=== PATIENT | female | born 1950 | race African-American/Black ===

== ENCOUNTER 2025-02-28 13:32 | Inpatient (IN) | payer MEDICARE, OTHER ==
[~2025-02-28] VITALS: Ht 165.1 cm; Wt 65.0 kg
[2025-02-28] VITALS (10 sets, daily range): BP systolic 146–156; BP diastolic 68–76; PULSE 88–104; RESP 19–28; TEMP 36.7–37; O2SAT 97–100
[2025-02-28] MEDS: IPRATROPIUM BROMIDE (0.02%) 0.5MG/2.5ML NEB HHN STA (12:50)
[~2025-02-28 13:32] MED LIST: ALBU2.5V13 NEB; AMLO-905 MT; ASPI-1160 PO; BENZ100C86 PO; FLUT1BLS3 INH; HYDR25TA78 MT; LIP40 PO; P20 MT
[2025-02-28] MEDS: METHYLPREDNISOLONE SOD SUCC 125MG/2ML (ACT-O-VIAL) IV STA (14:07)
[2025-02-28 14:13] LABS: BASOPHILS % 0.9 % (0.0-2.0); EOSINOPHILS % 11.9 % (0.0-5.0); HEMATOCRIT. 45.4 % (36.0-48.0); HEMOGLOBIN. 14.9 g/dL (12.0-16.0); MEAN CORPUSCULAR HEMOGLOBIN 31.8 pg (28.0-32.0); MEAN CORPUSCULAR HGB CONC 32.7 g/dL (31.0-37.0); MEAN CORPUSCULAR VOLUME 97.1 fL (81.0-99.0); MEAN PLATELET VOLUME 7.8 fl (7.4-10.4); MONOCYTES % 9.4 % (2.0-8.0); NEUTROPHILS % 50.8 % (40.0-76.0); PLATELET 316 x1000/uL (130-400); RED BLOOD CELL COUNT 4.67 mill/uL (4.2-5.4); RED CELL DISTRIBUTION WIDTH 13.5 % (11.6-14.6); WHITE BLOOD COUNT 3.9 x1000/uL (4.5-11.0)
[2025-02-28] MEDS: ALBUTEROL (0.083%) 2.5MG/3ML NEB HHN SCH (14:20)
[2025-02-28 14:23] LABS: CHLORIDE 105 mEq/L (98-107); POTASSIUM 4.8 mEq/L (3.5-5.1); SODIUM 143 mEq/L (136-145)
[2025-02-28 14:24] LABS: CARBON DIOXIDE 30 mEq/L (21-32)
[2025-02-28 14:25] LABS: CALCIUM 9.5 mg/dL (8.7-10.4)
[2025-02-28 14:29] LABS: CREATININE 1.2 mg/dL (0.6-1.0); GLUCOSE 91 mg/dL (70-105)
[2025-02-28 14:30] LABS: UREA NITROGEN BLOOD 14 mg/dL (9-23)
[2025-02-28 14:32] LABS: TROPONIN I HIGH SENSITIVITY 10 ng/L (3.0-34)
[2025-02-28 16:10] LABS: BG BASE EXCESS -1.6 mmol/L (-2.0-3.0); BG CARBOXYHEMOGLOBIN 0.7 % (0.5-1.5); BG DEOXYHEMOGLOBIN 6.6 % (0.0-5.0); BG FRACTION INSPIRED OXYGEN 50; BG HCO3 ACT 25.2 mmol/L (21.0-28.0); BG METHEMOGLOBIN 0.1 % (0.5-1.5); BG OXYGEN SATURATION 93.3 % (94.0-98.0); BG OXYHEMOGLOBIN 92.6 % (94.0-98.0); BG PCO2 50.8 mmHg (32.0-45.0); BG PH 7.314 (7.350-7.450); BG PO2 74.4 mmHg (83.0-108.0); BG SAMPLE SITE RIGHT BRACHIAL; BG TOTAL HEMOGLOBIN 14.7 g/dL (12.0-16.0); BG VENT MODE MASK - BIPAP
[2025-02-28] MEDS ORDERED: ONDANSETRON HCL 4MG/2ML INJ IV PRN (16:15)
[2025-02-28] MEDS ORDERED: HYDROCODONE/ACETAMINOPHEN 5/325MG TABLET PO PRN (16:15)
[2025-02-28] MEDS ORDERED: CLONIDINE 0.1MG TABLET PO PRN (16:15)
[2025-02-28] MEDS ORDERED: ACETAMINOPHEN 325MG TABLET PO PRN (16:15)
[2025-02-28] MEDS: ENOXAPARIN 40MG/0.4ML SYR SUBCUT SCH (18:35)
[2025-02-28] MEDS: IPRATROPIUM/ALBUTEROL 0.5-3(2.5)MG/3ML NEB HHN PRN (21:18)
[2025-03-01] VITALS (19 sets, daily range): BP systolic 124–173; BP diastolic 60–114; PULSE 82–100; RESP 20–31; TEMP 36.1–37; O2SAT 100
[2025-03-01 00:03] LABS: CREATINE KINASE MB FRACTION 2.4 ng/mL (0.5-3.6)
[2025-03-01] MEDS: METHYLPREDNISOLONE SOD SUCC 125MG/2ML (ACT-O-VIAL) IV SCH (07:36)
[2025-03-01] MEDS: ASPIRIN 81MG TABLET PO SCH (08:28)
[2025-03-01] MEDS: AMLODIPINE 10MG TABLET PO SCH (08:28)
[2025-03-01] MEDS: HYDRALAZINE HCL 50MG TABLET PO NR (10:53)
[2025-03-01 11:25] LABS: HEMATOCRIT. 40.9 % (36.0-48.0); HEMOGLOBIN. 13.6 g/dL (12.0-16.0); MEAN CORPUSCULAR HGB CONC 33.2 g/dL (31.0-37.0); MEAN CORPUSCULAR VOLUME 96.4 fL (81.0-99.0); PLATELET 304 x1000/uL (130-400); RED BLOOD CELL COUNT 4.24 mill/uL (4.2-5.4); RED CELL DISTRIBUTION WIDTH 13.2 % (11.6-14.6); WHITE BLOOD COUNT 6.5 x1000/uL (4.5-11.0)
[2025-03-01 11:33] LABS: DIFFERENTIAL COMMENT 1
[2025-03-01 11:34] LABS: POTASSIUM 4.5 mEq/L (3.5-5.1)
[2025-03-01 11:35] LABS: CALCIUM 9.3 mg/dL (8.7-10.4)
[2025-03-01 11:40] LABS: CREATINE KINASE MB FRACTION 3.5 ng/mL (0.5-3.6); CREATININE 1.2 mg/dL (0.6-1.0)
[2025-03-01] MEDS ORDERED: DEXTROSE 50% WATER 50ML SYRINGE IV PRN (12:45)
[2025-03-01] MEDS: INSULIN LISPRO 100 UNITS/ML SUBCUT SCH (12:53)
[2025-03-01 17:50] LABS: PLATELET ESTIMATE NORMAL
[2025-03-01] MEDS: BLOOD SUGAR DIAGNOSTIC STRIP TEST SCH (18:23)
[2025-03-01] MEDS: ATORVASTATIN CALCIUM 40MG TABLET PO SCH (21:16)
[2025-03-01] MEDS: HYDRALAZINE HCL 50MG TABLET PO SCH (21:16)
[2025-03-02] VITALS (18 sets, daily range): BP systolic 122–154; BP diastolic 55–91; PULSE 71–105; RESP 19–28; TEMP 36–37.3; O2SAT 100
[2025-03-02] MEDS ORDERED: IPRATROPIUM/ALBUTEROL 0.5-3(2.5)MG/3ML NEB HHN PRN (02:30)
[2025-03-02] MEDS: METHYLPREDNISOLONE SOD SUCC 125MG/2ML (ACT-O-VIAL) IV SCH (02:41)
[2025-03-02] MEDS: IPRATROPIUM/ALBUTEROL 0.5-3(2.5)MG/3ML NEB HHN SCH (04:13)
[2025-03-03] VITALS (16 sets, daily range): BP systolic 118–158; BP diastolic 66–95; PULSE 68–108; RESP 18–25; TEMP 36.1–36.8; O2SAT 97–100
[2025-03-03 08:02] LABS: HEMATOCRIT. 42.5 % (36.0-48.0); HEMOGLOBIN. 13.9 g/dL (12.0-16.0); MEAN CORPUSCULAR HEMOGLOBIN 31.7 pg (28.0-32.0); MEAN CORPUSCULAR HGB CONC 32.7 g/dL (31.0-37.0); MEAN CORPUSCULAR VOLUME 97.1 fL (81.0-99.0); MEAN PLATELET VOLUME 8.3 fl (7.4-10.4); PLATELET 305 x1000/uL (130-400); RED BLOOD CELL COUNT 4.38 mill/uL (4.2-5.4); RED CELL DISTRIBUTION WIDTH 13.5 % (11.6-14.6); WHITE BLOOD COUNT 10.6 x1000/uL (4.5-11.0)
[2025-03-03 08:21] LABS: DIFFERENTIAL COMMENT 1
[2025-03-03 08:23] LABS: POTASSIUM 4.8 mEq/L (3.5-5.1)
[2025-03-03 08:24] LABS: CALCIUM 8.8 mg/dL (8.7-10.4)
[2025-03-03 08:29] LABS: CREATININE 1.1 mg/dL (0.6-1.0)
[2025-03-03] MEDS ORDERED: NALOXONE HCL 0.4MG/ML VIAL IV PRN (08:30)
[2025-03-03 09:08] LABS: BG BASE EXCESS 1.6 mmol/L (-2.0-3.0); BG CARBOXYHEMOGLOBIN 0.5 % (0.5-1.5); BG DEOXYHEMOGLOBIN 2.3 % (0.0-5.0); BG FRACTION INSPIRED OXYGEN 36; BG HCO3 ACT 26.8 mmol/L (21.0-28.0); BG METHEMOGLOBIN 0.2 % (0.5-1.5); BG OXYGEN SATURATION 97.7 % (94.0-98.0); BG PCO2 44.2 mmHg (32.0-45.0); BG PH 7.401 (7.350-7.450); BG PO2 100.7 mmHg (83.0-108.0); BG SAMPLE SITE LEFT BRACHIAL; BG TOTAL HEMOGLOBIN 14.5 g/dL (12.0-16.0); BG VENT MODE NASAL CANNULA
[2025-03-03 13:48] LABS: PLATELET ESTIMATE NORMAL
[2025-03-03] MEDS: FAMOTIDINE 20MG TABLET PO SCH (21:42)
[2025-03-04] VITALS (11 sets, daily range): BP systolic 114–136; BP diastolic 54–80; PULSE 69–90; RESP 15–24; TEMP 36.2–36.5; O2SAT 68–100
[2025-03-04 08:12] LABS: HEMOGLOBIN. 13.9 g/dL (12.0-16.0); MEAN CORPUSCULAR HEMOGLOBIN 31.9 pg (28.0-32.0); MEAN CORPUSCULAR HGB CONC 33.1 g/dL (31.0-37.0); MEAN CORPUSCULAR VOLUME 96.3 fL (81.0-99.0); MEAN PLATELET VOLUME 8.1 fl (7.4-10.4); PLATELET 315 x1000/uL (130-400); RED BLOOD CELL COUNT 4.37 mill/uL (4.2-5.4); WHITE BLOOD COUNT 9.5 x1000/uL (4.5-11.0)
[2025-03-04 08:13] LABS: DIFFERENTIAL COMMENT 1
[2025-03-04 08:29] LABS: CARBON DIOXIDE 31 mEq/L (21-32); CHLORIDE 102 mEq/L (98-107); POTASSIUM 4.8 mEq/L (3.5-5.1); SODIUM 139 mEq/L (136-145)
[2025-03-04 08:30] LABS: CALCIUM 9.1 mg/dL (8.7-10.4)
[2025-03-04 08:33] LABS: BASOPHILS % 0.1 % (0.0-2.0); LYMPHOCYTES % 2.3 % (20.0-50.0); MONOCYTES % 3.5 % (2.0-8.0); NEUTROPHILS % 94.1 % (40.0-76.0)
[2025-03-04 08:34] LABS: GLUCOSE 139 mg/dL (70-105)
[2025-03-04 08:35] LABS: UREA NITROGEN BLOOD 32 mg/dL (9-23)
[2025-03-04] MEDS ORDERED: IOHEXOL-350 100 ML BOTTLE ONE (10:28)
[2025-03-04 12:30] LABS: PLATELET ESTIMATE NORMAL
[2025-03-05] VITALS (11 sets, daily range): BP systolic 129–138; BP diastolic 61–77; PULSE 79–98; RESP 17–24; TEMP 36.3–36.9; O2SAT 98–100
[2025-03-05 08:22] LABS: HEMATOCRIT. 43.1 % (36.0-48.0); HEMOGLOBIN. 14.2 g/dL (12.0-16.0); MEAN PLATELET VOLUME 8.6 fl (7.4-10.4); PLATELET 325 x1000/uL (130-400); RED BLOOD CELL COUNT 4.44 mill/uL (4.2-5.4); RED CELL DISTRIBUTION WIDTH 13.6 % (11.6-14.6); WHITE BLOOD COUNT 12.6 x1000/uL (4.5-11.0)
[2025-03-05 08:37] LABS: CHLORIDE 101 mEq/L (98-107); POTASSIUM 4.7 mEq/L (3.5-5.1); SODIUM 139 mEq/L (136-145)
[2025-03-05 08:38] LABS: CARBON DIOXIDE 31 mEq/L (21-32)
[2025-03-05 08:41] LABS: DIFFERENTIAL COMMENT 1
[2025-03-05 08:43] LABS: GLUCOSE 134 mg/dL (70-105); UREA NITROGEN BLOOD 36 mg/dL (9-23)
[2025-03-05 15:24] LABS: PLATELET ESTIMATE NORMAL
[2025-03-05 17:46] LABS: CLARITY URINE CLEAR (CLEAR); COLOR URINE YELLOW (YELLOW); GLUCOSE URINE NEGATIVE (NEGATIVE); KETONES URINE NEGATIVE (NEGATIVE); LEUKOCYTE ESTERASE URINE NEGATIVE (NEGATIVE); NITRITE URINE NEGATIVE (NEGATIVE); OCCULT BLOOD URINE NEGATIVE (NEGATIVE); PH URINE 5.5 (4.5-8.0); PROTEIN URINE TRACE (NEGATIVE); SPECIFIC GRAVITY URINE 1.039 (1.005-1.030); UROBILINOGEN URINE 0.2 E.U./dL (0.2-1.0)
[2025-03-05 17:58] LABS: BACTERIA URINE NONE SEEN; RBC URINE NONE SEEN /hpf (0-2); SQUAMOUS EPITHELIAL CELL URINE FEW /lpf (RARE/1+); WBC URINE 0-2 /hpf (0-2)
[2025-03-06] VITALS (11 sets, daily range): BP systolic 132–154; BP diastolic 53–82; PULSE 20–109; RESP 18–24; TEMP 36.2–37.6; O2SAT 96–100
[2025-03-06] MEDS ORDERED: IODIXANOL 320 MG/ML 150ML BOTTLE IV ONE (07:24)
[2025-03-06] MEDS ORDERED: LIDOCAINE HCL 1% 20ML VIAL ONE (07:24)
[2025-03-06] MEDS ORDERED: HEPARIN 1000 UNITS/ML 10ML ONE (07:24)
[2025-03-06] MEDS ORDERED: FENTANYL CITRATE/PF 50MCG/ML 2ML VIAL ONE (08:13)
[2025-03-06] MEDS ORDERED: MIDAZOLAM HCL 2 MG/2 ML VIAL ONE (08:13)
[2025-03-06] MEDS ORDERED: SEVOFLURANE 250 ML LIQUID INH ONE (15:13)
[2025-03-06] MEDS: METHYLPREDNISOLONE SOD SUCC 40MG/ML (ACT-O-VIAL) IV SCH (22:00)
[2025-03-07] VITALS (8 sets, daily range): BP systolic 113–142; BP diastolic 47–68; PULSE 76–103; RESP 16–20; TEMP 36.2–37.1; O2SAT 96–100
[2025-03-07 06:32] LABS: CHLORIDE 102 mEq/L (98-107); HEMOGLOBIN. 13.3 g/dL (12.0-16.0); MEAN CORPUSCULAR HGB CONC 33.3 g/dL (31.0-37.0); MEAN CORPUSCULAR VOLUME 96.1 fL (81.0-99.0); MEAN PLATELET VOLUME 8.5 fl (7.4-10.4); PLATELET 256 x1000/uL (130-400); POTASSIUM 4.7 mEq/L (3.5-5.1); RED BLOOD CELL COUNT 4.16 mill/uL (4.2-5.4); RED CELL DISTRIBUTION WIDTH 13.4 % (11.6-14.6); SODIUM 139 mEq/L (136-145); WHITE BLOOD COUNT 21.6 x1000/uL (4.5-11.0)
[2025-03-07 06:34] LABS: CARBON DIOXIDE 32 mEq/L (21-32)
[2025-03-07 06:35] LABS: CALCIUM 8.9 mg/dL (8.7-10.4)
[2025-03-07 06:39] LABS: CREATININE 1.1 mg/dL (0.6-1.0)
[2025-03-07 06:40] LABS: GLUCOSE 162 mg/dL (70-105); UREA NITROGEN BLOOD 33 mg/dL (9-23)
[2025-03-07 06:41] LABS: ALANINE AMINOTRANSFERASE 28 IU/L (10-49); ALBUMIN 3.3 g/dL (3.2-4.8); ASPARTATE AMINOTRANSFERASE 16 IU/L (<34)
[2025-03-07 06:42] LABS: BILIRUBIN DIRECT 0.2 mg/dL (<=3.0); BILIRUBIN TOTAL 0.5 mg/dL (0.1-1.0)
[2025-03-07 07:14] LABS: DIFFERENTIAL COMMENT 1
[2025-03-07] MEDS ORDERED: LIDOCAINE HCL/PF 1% 2ML VIAL ONE (11:06)
[2025-03-07] MEDS: METHYLPREDNISOLONE SOD SUCC 40MG/ML (ACT-O-VIAL) IV SCH (12:39)
[2025-03-07] MEDS: LEVOFLOXACIN 750MG PREMIX 150 ML IV SCH (14:49)
[2025-03-07 15:00] LABS: BG BASE EXCESS 6.2 mmol/L (-2.0-3.0); BG DEOXYHEMOGLOBIN 11.3 % (0.0-5.0); BG FRACTION INSPIRED OXYGEN 21; BG HCO3 ACT 30.6 mmol/L (21.0-28.0); BG METHEMOGLOBIN 0.1 % (0.5-1.5); BG OXYGEN SATURATION 88.6 % (94.0-98.0); BG OXYHEMOGLOBIN 87.6 % (94.0-98.0); BG PCO2 43.1 mmHg (32.0-45.0); BG PH 7.469 (7.350-7.450); BG PO2 53.6 mmHg (83.0-108.0); BG SAMPLE SITE RIGHT RADIAL; BG TOTAL HEMOGLOBIN 13.6 g/dL (12.0-16.0); BG VENT MODE ROOM AIR
[2025-03-07 19:10] LABS: PLATELET ESTIMATE NORMAL
[2025-03-08] VITALS (11 sets, daily range): BP systolic 123–142; BP diastolic 52–79; PULSE 59–100; RESP 16–20; TEMP 36.1–36.6; O2SAT 18–100
[2025-03-08] MEDS: ALBUTEROL (0.083%) 2.5MG/3ML NEB HHN SCH (04:40)
[2025-03-08 07:01] LABS: HEMATOCRIT. 36.6 % (36.0-48.0); HEMOGLOBIN. 12.3 g/dL (12.0-16.0); MEAN CORPUSCULAR HEMOGLOBIN 32.1 pg (28.0-32.0); MEAN CORPUSCULAR HGB CONC 33.6 g/dL (31.0-37.0); MEAN CORPUSCULAR VOLUME 95.7 fL (81.0-99.0); MEAN PLATELET VOLUME 8.6 fl (7.4-10.4); PLATELET 264 x1000/uL (130-400); RED BLOOD CELL COUNT 3.82 mill/uL (4.2-5.4); RED CELL DISTRIBUTION WIDTH 13.5 % (11.6-14.6); WHITE BLOOD COUNT 27.2 x1000/uL (4.5-11.0)
[2025-03-08 07:05] LABS: CARBON DIOXIDE 29 mEq/L (21-32); CHLORIDE 99 mEq/L (98-107); POTASSIUM 4.4 mEq/L (3.5-5.1); SODIUM 137 mEq/L (136-145)
[2025-03-08 07:06] LABS: CALCIUM 8.7 mg/dL (8.7-10.4)
[2025-03-08 07:09] LABS: DIFFERENTIAL COMMENT 1
[2025-03-08 07:11] LABS: GLUCOSE 157 mg/dL (70-105); UREA NITROGEN BLOOD 37 mg/dL (9-23)
[2025-03-08] MEDS ORDERED: CEFEPIME 2GM IN DEXT 5% 100ML IV SCH (12:45)
[2025-03-08 13:18] LABS: PLATELET ESTIMATE NORMAL
[2025-03-08] MEDS: CEFEPIME 2GM/50ML DUPLEX 50 ML IV SCH (15:37)
[2025-03-09] VITALS (13 sets, daily range): BP systolic 113–135; BP diastolic 57–71; PULSE 82–91; RESP 16–22; TEMP 36.1–36.5; O2SAT 94–100
[2025-03-09 20:57] LABS: HEMATOCRIT. 34.9 % (36.0-48.0); HEMOGLOBIN. 11.4 g/dL (12.0-16.0); MEAN CORPUSCULAR HEMOGLOBIN 31.6 pg (28.0-32.0); MEAN CORPUSCULAR HGB CONC 32.8 g/dL (31.0-37.0); MEAN CORPUSCULAR VOLUME 96.5 fL (81.0-99.0); MEAN PLATELET VOLUME 8.7 fl (7.4-10.4); PLATELET 299 x1000/uL (130-400); RED BLOOD CELL COUNT 3.62 mill/uL (4.2-5.4); RED CELL DISTRIBUTION WIDTH 13.8 % (11.6-14.6)
[2025-03-09 21:00] LABS: DIFFERENTIAL COMMENT 1
[2025-03-09 21:05] LABS: CHLORIDE 102 mEq/L (98-107); POTASSIUM 4.7 mEq/L (3.5-5.1); SODIUM 137 mEq/L (136-145)
[2025-03-09 21:06] LABS: CARBON DIOXIDE 32 mEq/L (21-32)
[2025-03-09 21:11] LABS: CREATININE 0.9 mg/dL (0.6-1.0); GLUCOSE 157 mg/dL (70-105); PARTIAL THROMBOPLASTIN TIME < 21.0 sec (23.4-31.0); PROTHROMBIN TIME 10.3 sec (9.6-11.0); UREA NITROGEN BLOOD 36 mg/dL (9-23)
[2025-03-09 21:14] LABS: PLATELET ESTIMATE NORMAL
[2025-03-10] VITALS (11 sets, daily range): BP systolic 109–123; BP diastolic 56–68; PULSE 84–100; RESP 18–24; TEMP 35.6–37.1; O2SAT 96–98
[2025-03-10 06:42] LABS: CALCIUM 8.7 mg/dL (8.7-10.4); CARBON DIOXIDE 30 mEq/L (21-32); CHLORIDE 102 mEq/L (98-107); POTASSIUM 4.9 mEq/L (3.5-5.1); SODIUM 138 mEq/L (136-145)
[2025-03-10 06:47] LABS: CREATININE 0.8 mg/dL (0.6-1.0)
[2025-03-10 06:48] LABS: GLUCOSE 117 mg/dL (70-105); UREA NITROGEN BLOOD 34 mg/dL (9-23)
[2025-03-10 06:52] LABS: HEMATOCRIT. 34.9 % (36.0-48.0); HEMOGLOBIN. 11.5 g/dL (12.0-16.0); MEAN CORPUSCULAR HEMOGLOBIN 31.8 pg (28.0-32.0); MEAN CORPUSCULAR HGB CONC 33.1 g/dL (31.0-37.0); MEAN CORPUSCULAR VOLUME 96.3 fL (81.0-99.0); MEAN PLATELET VOLUME 8.8 fl (7.4-10.4); PLATELET 298 x1000/uL (130-400); RED BLOOD CELL COUNT 3.62 mill/uL (4.2-5.4); RED CELL DISTRIBUTION WIDTH 13.9 % (11.6-14.6); WHITE BLOOD COUNT 20.8 x1000/uL (4.5-11.0)
[2025-03-10 06:58] LABS: DIFFERENTIAL COMMENT 1
[2025-03-10 11:09] LABS: PLATELET ESTIMATE NORMAL
[2025-03-11] VITALS (10 sets, daily range): BP systolic 105–128; BP diastolic 53–70; PULSE 86–101; RESP 15–22; TEMP 36.1–37.2; O2SAT 95–100
== END 2025-03-11 17:10 | disposition home or self-care (01) | DRG 166 ==
LOC: ER 13:32 → EDBEDREQ 14:17 → 5EST 14:42 → EDBEDREQ 14:50 → 6WST 03-03 08:15
PROVIDERS: ADMIT Internal Medicine; ATTEND Internal Medicine
PROC: 5A09357 Assistance with Respiratory Ventilation, Less than 24 Consecutive Hours, Continuous Positive Airway Pressure (ICD-10-PCS; 2025-02-28)
PROC: 5A09357 Assistance with Respiratory Ventilation, Less than 24 Consecutive Hours, Continuous Positive Airway Pressure (ICD-10-PCS; 2025-03-01)
PROC: 5A09357 Assistance with Respiratory Ventilation, Less than 24 Consecutive Hours, Continuous Positive Airway Pressure (ICD-10-PCS; 2025-03-02)
PROC: 5A09357 Assistance with Respiratory Ventilation, Less than 24 Consecutive Hours, Continuous Positive Airway Pressure (ICD-10-PCS; 2025-03-03)
PROC: 047K3ZZ Dilation of Right Femoral Artery, Percutaneous Approach (ICD-10-PCS; principal; 2025-03-06)
PROC: 047M3ZZ Dilation of Right Popliteal Artery, Percutaneous Approach (ICD-10-PCS; 2025-03-06)
PROC: B41F1ZZ Fluoroscopy of Right Lower Extremity Arteries using Low Osmolar Contrast (ICD-10-PCS; 2025-03-06)
DX: J45.901 Unspecified asthma with (acute) exacerbation (principal); J96.21 Acute and chronic respiratory failure with hypoxia; R65.10 Systemic inflammatory response syndrome (SIRS) of non-infectious origin without acute organ dysfunction; L97.818 Non-pressure chronic ulcer of other part of right lower leg with other specified severity; I70.238 Atherosclerosis of native arteries of right leg with ulceration of other part of lower leg; I25.10 Atherosclerotic heart disease of native coronary artery without angina pectoris; I50.9 Heart failure, unspecified; I11.0 Hypertensive heart disease with heart failure; E78.5 Hyperlipidemia, unspecified; D72.829 Elevated white blood cell count, unspecified; T38.0X5A Adverse effect of glucocorticoids and synthetic analogues, initial encounter; Z79.899 Other long term (current) drug therapy; Z87.891 Personal history of nicotine dependence; Z99.81 Dependence on supplemental oxygen; Y92.89 Other specified places as the place of occurrence of the external cause
CPT/HCPCS: 36415; 36600; 37224; 71045; 75635; 75710; 76857; 80048; 80076; 81003; 82375; 82550; 82553; 82805; 82962; 83036; 83735; 83880; 84145; 84484; 85025; 93005; 93923; 94070; 94640; 94660; 94760; 99285; A4606; C1769; C1893; C1894; J0692; J1644; J1650; J1815; J1956; J2250; J2919; J3010; J3490; Q9967

== ENCOUNTER 2025-10-03 07:41 | Emergency (ER) | payer MEDICARE, OTHER ==
[~2025-10-03] VITALS: Ht 165.1 cm; Wt 73.0 kg
[2025-10-03 07:44] VITALS: O2SAT 97
[2025-10-03 07:49] VITALS: BP 185/79; PULSE 85; RESP 16; TEMP 36.6; O2SAT 100
[2025-10-03] MEDS ORDERED: MUPI15CR11 TP (09:07)
[2025-10-03] MEDS ORDERED: UREA71CR TP (09:07)
== END 2025-10-03 09:24 | disposition home or self-care (01) ==
LOC: ER 07:43
DX: R21 Rash and other nonspecific skin eruption (principal); J45.909 Unspecified asthma, uncomplicated; I10 Essential (primary) hypertension; I25.2 Old myocardial infarction; Z79.82 Long term (current) use of aspirin; Z79.899 Other long term (current) drug therapy
CPT/HCPCS: 99283